=== PATIENT | male | born 1960 | race Caucasian/White ===

== ENCOUNTER 2017-04-01 16:49 | Inpatient (IN) | payer OTHER, BC ==
[~2017-04-01] VITALS: Ht 172.7 cm; Wt 69.5 kg
[2017-04-01 07:45] VITALS: BP 127/88
[~2017-04-01 16:49] MED LIST: Amoxicillin/Potassium Clav PO; CETI10TA22 PO; Clotrimazole/Betamethasone Dip TP; DILT240C2 PO; HYDR50TA6 PO; Ipratropium/Albuterol Sulfate NEB; PANT20TA58 PO
[2017-04-01] MEDS ORDERED: LIDOCAINE 1% Multi-Dose 20 ML VIAL. ONE (17:04)
[2017-04-01] MEDS ORDERED: MVI, ADULT NO.4 WITH VIT K 10 ML, FOLIC ACID SYRINGE for ER 1 MG, THIAMINE 100 MG in IV... IV ONE ×4 (17:30)
[2017-04-01] MEDS ORDERED: LIDOCAINE 1% PF 30 ML VIAL. INJ ONE (17:45)
[2017-04-01] MEDS ORDERED: LIDOCAINE 1% Multi-Dose 20 ML VIAL. INJ ONE (17:45)
[2017-04-01] MEDS ORDERED: THIAMINE 200 MG/2 ML VIAL. IV ONE (17:51)
[2017-04-01] MEDS ORDERED: MVI, ADULT NO.4 WITH VIT K 10 ML VIAL IV ONE (17:51)
[2017-04-01 17:52] LABS: BASO # 0.1 x10^3/uL (0.0-0.2); BASO % 1 % (0-3); EOS # 0.1 x10^3/uL (0.0-0.7); EOS % 1 % (0-3); HEMATOCRIT 38.2 % (39.0-53.0); HEMOGLOBIN 13.5 g/dL (13.0-17.5); LYMPH # 2.6 x10^3/uL (1.0-4.8); LYMPH % 26 % (24-48); MEAN CORPUSCULAR HEMOGLOBIN 33 pg (25-35); MEAN CORPUSCULAR HGB CONC 35 g/dL (31-37); MEAN CORPUSCULAR VOLUME 93 fL (79-100); MONO % 10 % (0-9); NEUT # 6.3 x10^3uL (1.8-7.7); NEUT % 62 % (31-73); PLATELET COUNT 194 x10^3/uL (140-400); RED BLOOD COUNT 4.13 x10^6/uL (4.30-5.70); RED CELL DISTRIBUTION WIDTH 13.5 % (11.5-14.5); WHITE BLOOD COUNT 10.2 x10^3/uL (4.0-11.0)
[2017-04-01] MEDS ORDERED: FOLIC ACID 5 MG/ML SYRINGE for ER IV ONE (17:52)
[2017-04-01 18:07] LABS: ALBUMIN 3.5 g/dL (3.4-5.0); ALBUMIN/GLOBULIN RATIO 0.9 (1.0-1.7); CALCIUM 8.7 mg/dL (8.5-10.1); CREATININE 0.7 mg/dL (0.7-1.3); GFR 116.7; MAGNESIUM 1.8 mg/dL (1.8-2.4); POTASSIUM 3.5 mmol/L (3.5-5.1); TOTAL BILIRUBIN 0.4 mg/dL (0.2-1.0); TOTAL PROTEIN 7.3 g/dL (6.4-8.2)
--- NOTE | 2017-04-01 18:14 | PHYS DOC ---
Adult General Chief Complaint Chief Complaint: LACERATION/AVULSION HPI HPI Patient is a 56 year old M who presents with alcohol intoxication, altered mental status, and multiple lacerations. Dell history is limited due to his alcohol intoxication. Dell used a knife to make superficial lacerations mainly on his abdomen, back, and right thigh. The right thigh has a deep laceration as well. Dell states he has PTSD and paranoia. When asked if he is having thoughts of hurting himself he simply looks at his multiple cuts and shrugs his shoulders. During his evaluation he occasionally uses phrases that seemed out of context. Review of Systems Review of Systems Constitutional: Denies fever or chills [] Eyes: Denies change in visual acuity, redness, or eye pain [] HENT: Denies nasal congestion or sore throat [] Respiratory: Denies cough or shortness of breath [] Cardiovascular: No additional information not addressed in HPI [] GI: Denies abdominal pain, nausea, vomiting, bloody stools or diarrhea [] : Denies dysuria or hematuria [] Musculoskeletal: Negative except history of present illness Integument: Negative except history of present illness Neurologic: Denies headache, focal weakness or sensory changes [] Endocrine: Denies polyuria or polydipsia [] Family History Family History Unable to obtain Current Medications Current Medications Current Medications Medications (Trade) Dose Ordered Sig/Todd Start Time Stop Time Status Last Admin Dose Admin Folic Acid 5 mg STK-MED ONCE 04/01/17 17:52 04/01/17 17:53 DC Lidocaine HCl 30 ml 1X ONCE 04/01/17 17:45 04/01/17 17:46 DC 04/01/17 17:15 30 ML Multivitamins/ Minerals (Infuvite Adult) 10 ml STK-MED ONCE 04/01/17 17:51 04/01/17 17:52 DC Multivitamins/ Minerals 10 ml/ Folic Acid 1 mg/ Thiamine HCl 100 mg/Dextrose/ Sodium Chloride 1,011.1 ml @ 1,000 mls/ hr 1X ONCE 04/01/17 17:30 04/01/17 18:30 Thiamine HCl 200 mg STK-MED ONCE 04/01/17 17:51 04/01/17 17:52 DC Allergies Allergies Allergies Coded Allergies Type Severity Reaction Last Updated Verified lisinopril Allergy Mild hives 08/08/14 Yes Physical Exam Physical Exam Constitutional: Well developed, well nourished, no acute distress, non-toxic appearance. [] Alcohol intoxication HENT: Normocephalic, atraumatic, bilateral external ears normal, oropharynx moist, no oral exudates, nose normal. [] Eyes: EOMI, conjunctiva normal, no discharge. [] Neck: Normal range of motion, no tenderness, supple, no stridor. [] Cardiovascular:Heart rate regular rhythm, Lungs & Thorax: Bilateral breath sounds clear to auscultation [] multiple superficial lacerations on the anterior and posterior trunk Abdomen: Bowel sounds normal, soft, no tenderness, no masses, no pulsatile masses. [] Skin: Warm, dry, no erythema, no rash. [] Back: No tenderness, no CVA tenderness. [] Extremities: No tenderness, no cyanosis, no clubbing, ROM intact, no edema. [] Multiple superficial lacerations on upper extremities bilaterally as well as right thigh. L shaped laceration on the right lateral thigh approximately 6 cm in length. Neurologic: Alert and oriented X 3, normal motor function, normal sensory function, no focal deficits noted. [] Psychologic: Intoxicated, cooperative however he occasionally makes comments out of context. Current Patient Data Vital Signs Normal vital signs. Please review nursing documentation for specifics Lab Results Laboratory Tests Test 04/01/17 17:40 White Blood Count 10.2 x10^3/uL (4.0-11.0) Red Blood Count 4.13 x10^6/uL (4.30-5.70) Hemoglobin 13.5 g/dL (13.0-17.5) Hematocrit 38.2 % (39.0-53.0) Mean Corpuscular Volume 93 fL (79-100) Mean Corpuscular Hemoglobin 33 pg (25-35) Mean Corpuscular Hemoglobin Concent 35 g/dL (31-37) Red Cell Distribution Width 13.5 % (11.5-14.5) Platelet Count 194 x10^3/uL (140-400) Neutrophils (%) (Auto) 62 % (31-73) Lymphocytes (%) (Auto) 26 % (24-48) Monocytes (%) (Auto) 10 % (0-9) Eosinophils (%) (Auto) 1 % (0-3) Basophils (%) (Auto) 1 % (0-3) Neutrophils # (Auto) 6.3 x10^3uL (1.8-7.7) Lymphocytes # (Auto) 2.6 x10^3/uL (1.0-4.8) Monocytes # (Auto) 1.0 x10^3/uL (0.0-1.1) Eosinophils # (Auto) 0.1 x10^3/uL (0.0-0.7) Basophils # (Auto) 0.1 x10^3/uL (0.0-0.2) Sodium Level 135 mmol/L (136-145) Potassium Level 3.5 mmol/L (3.5-5.1) Chloride Level 98 mmol/L (98-107) Carbon Dioxide Level 25 mmol/L (21-32) Anion Gap 12 (6-14) Blood Urea Nitrogen 13 mg/dL (8-26) Creatinine 0.7 mg/dL (0.7-1.3) Estimated GFR (Cockcroft-Gault) 116.7 BUN/Creatinine Ratio 19 (6-20) Glucose Level 108 mg/dL (70-99) Calcium Level 8.7 mg/dL (8.5-10.1) Magnesium Level 1.8 mg/dL (1.8-2.4) Total Bilirubin 0.4 mg/dL (0.2-1.0) Aspartate Amino Transf (AST/SGOT) 33 U/L (15-37) Alanine Aminotransferase (ALT/SGPT) 39 U/L (16-63) Alkaline Phosphatase 120 U/L (46-116) Total Protein 7.3 g/dL (6.4-8.2) Albumin 3.5 g/dL (3.4-5.0) Albumin/Globulin Ratio 0.9 (1.0-1.7) Ethyl Alcohol Level 279 mg/dL (0-10) EKG EKG [] Radiology/Procedures Radiology/Procedures Indication: Right lateral leg laceration as above Procedure: The patient was placed in the appropriate position and anesthesia around the laceration one percent lidocaine was used. The area was then cleaned with copious sterile water and chlorhexidine. The laceration was closed using 4- 0 Ethilon, 9 sutures were placed. Additional superficial lacerations were cleaned with sterile water and dressed with antibiotic ointment. The wound area was then dressed. Total repaired wound length: 6 cm. The patient tolerated the procedure well. Course & Med Decision Making Course & Med Decision Making Pertinent Labs and Imaging studies reviewed. (See chart for details) [] Dragon Disclaimer Dragon Disclaimer This chart was dictated in whole or in part using Voice Recognition software in a busy, high-work load, and often noisy Emergency Department environment. It may contain unintended and wholly unrecognized errors or omissions. Departure Departure: Impression: Primary Impression: Alcohol intoxication Additional Impressions: Altered mental status Laceration Disposition: ADMITTED INPATIENT Condition: STABLE Referrals: STERLING SMITH (PCP) Problem Qualifiers REGINALD FRAZIER MD Apr 01, 2017 18:14
[2017-04-01 18:48] LABS: AMPHETAMINE/METHAMPHETAMINE NEG (NEG); BARBITURATES NEG (NEG); BENZODIAZEPINES NEG (NEG); CANNABINOIDS NEG (NEG); COCAINE NEG (NEG); METHADONE NEG (NEG); OPIATES NEG (NEG); PHENCYCLIDINE NEG (NEG)
[2017-04-01 18:57] LABS: CLARITY,URINE CLEAR; COLOR,URINE YELLOW
[2017-04-01 18:58] LABS: BACTERIA,URINE 0 /HPF (0-FEW); BILIRUBIN,URINE NEG (NEG); GLUCOSE,URINE NEG (NEG); NITRITE,URINE NEG (NEG); SQUAMOUS EPITHELIAL CELL,UR FEW /LPF; UROBILINOGEN,URINE 0.2 mg/dL (0.2 mg/dL)
[2017-04-01 19:45] VITALS: BP 127/88
[2017-04-01] MEDS ORDERED: HALOPERIDOL LACT 5 MG/ML VIAL. IM PRN (20:15)
[2017-04-01] MEDS ORDERED: LORazepam 2 MG/ML VIAL IV PRN ×2 (20:15)
[2017-04-01] MEDS ORDERED: diphenhydrAMINE 50 MG/ML VIAL IVP PRN (20:15)
[2017-04-01] MEDS ORDERED: cloNIDine HCL 0.1 MG TABLET PO PRN (20:15)
[2017-04-01] MEDS ORDERED: OMEP40CA5 PO (21:56)
[2017-04-02] MEDS ORDERED: ACETAMINOPHEN 325 MG TABLET PO PRN
[2017-04-02 00:08] VITALS: BP 117/75
--- NOTE | 2017-04-02 12:55 | SSS ---
ADMIT DATE: 04/02/2017 DISPOSITION ON DISCHARGE BACK HOME AGAINST MEDICAL ADVICE: Please note that I did not see this patient as he left in the early hours of this morning and insisted that he had to leave. Basically, diagnosis is: 1. Alcoholic intoxication. 2. Altered mental status. 3. Self-harm. 4. Posttraumatic stress disorder. HOSPITAL COURSE: As best as I could state is this 56-year-old male presented to the Emergency Room, who was intoxicated with an alcohol level of 278, altered mental status, and some self-harm. He was admitted, had received banana bag, swept it off, and received a little bit of Ativan, I believe, then when he woke up demanded his belongings and was informed of the safety precautions. Denied any suicidal ideation and left. DISCHARGE VITAL SIGNS: Blood pressure 117/75, pulse 84, respiratory rate 18, pulse ox 97% on room air, temperature 97.7. ARRON LANTIGUA DO DR: MARIA ISABEL/[facility] JOB#: [id number] / [id number]
== END 2017-04-02 03:05 | disposition left against medical advice (07) | DRG 894 ==
LOC: ER 16:49 → 1 SOUTH 18:15
PROVIDERS: ADMIT Family Medicine; ATTEND Family Medicine
PROC: 0HQHXZZ Repair Right Upper Leg Skin, External Approach (ICD-10-PCS; principal; 2017-04-01)
DX: F10.129 Alcohol abuse with intoxication, unspecified (principal); S31.010A Laceration without foreign body of lower back and pelvis without penetration into retroperitoneum, initial encounter; Z53.21 Procedure and treatment not carried out due to patient leaving prior to being seen by health care provider; F43.10 Post-traumatic stress disorder, unspecified; S41.112A Laceration without foreign body of left upper arm, initial encounter; S41.111A Laceration without foreign body of right upper arm, initial encounter; Y90.8 Blood alcohol level of 240 mg/100 ml or more; S31.119A Laceration without foreign body of abdominal wall, unspecified quadrant without penetration into peritoneal cavity, initial encounter; S71.111A Laceration without foreign body, right thigh, initial encounter; X78.1XXA Intentional self-harm by knife, initial encounter; Y93.89 Activity, other specified; Y92.89 Other specified places as the place of occurrence of the external cause; Y99.8 Other external cause status
CPT/HCPCS: 12002; 36415; 80053; 80307; 81001; 83735; 85025; 96365; 96366; G0480; J2060; 99285-25; G0479